=== PATIENT | female | born 1965 | race Caucasian/White ===

== ENCOUNTER 2024-10-12 08:49 | Day surgery (SDC) | payer BC ==
[~2024-10-12] VITALS: Ht 172.7 cm; Wt 114.1 kg
[~2024-10-12 08:49] MED LIST: ATOR1TAB19 PO; METF500T13 PO; OLME1TAB92 PO; TIRZ2.5P SC; TRUL0.5I SC
[2024-10-12] MEDS ORDERED: propofoL 200 MG/20 ML VIAL As Ordered ONE (09:40)
[2024-10-12 09:46] VITALS: TEMP 97.1
[2024-10-12 10:04] VITALS: BP 111/62; O2SAT 96
== END 2024-10-12 10:08 | disposition home or self-care (01) ==
LOC: M OPP 08:49
PROVIDERS: ATTEND Surgery
DX: Z12.11 Encounter for screening for malignant neoplasm of colon (principal); I10 Essential (primary) hypertension; E78.00 Pure hypercholesterolemia, unspecified; E11.9 Type 2 diabetes mellitus without complications; Z88.7 Allergy status to serum and vaccine; Z79.84 Long term (current) use of oral hypoglycemic drugs; Z79.85 Long-term (current) use of injectable non-insulin antidiabetic drugs; Z79.899 Other long term (current) drug therapy